=== PATIENT | female | born 1955 | race Caucasian/White ===

== ENCOUNTER 2017-08-26 06:08 | Day surgery (SDC) | payer SELFPAY ==
--- NOTE | 2017-08-22 16:28 | EKG12_ITS ---
Test Reason : PRE OP Blood Pressure : / mmHG Vent. Rate : 085 BPM Atrial Rate : 085 BPM P-R Int : 198 ms QRS Dur : 080 ms QT Int : 382 ms P-R-T Axes : 037 063 041 degrees QTc Int : 454 ms Normal sinus rhythm Low voltage QRS (limb leads) Nonspecific T wave abnormality Abnormal ECG Confirmed by BLU MCKAY, OBED ([id number]), design editor WIL RYDER ([id number]) on 08/26/2017 1:43:22 PM Referred By: Juanjo Santiago Confirmed By:OBED HURT MD
[2017-08-22 17:26] LABS: Hematocrit 38.1 % (37-47); Hemoglobin 12.6 g/dl (12.0-15.0); Mean Corp Hgb Conc 33.1 g/gl (32-36); Mean Corpuscular Hgb 30.5 pg (27.0-32.0); Mean Corpuscular Volume 92.3 fL (81-99); Mean Platelet Vol. 9.5 fl (6.2-12.0); Platelet Count 133 K/mm3 (150-450); RBC Distribution Width CV 13.7 % (11.6-14.6); RBC Distribution Width SD 45.6 fl (35.1-43.9); Red Blood Count 4.13 M/mm3 (4.2-5.4); White Blood Count 3.5 K/mm3 (4.4-11.0)
[2017-08-22 17:27] LABS: Scan Indicated on CBC? Y/N NO
[2017-08-22 17:31] LABS: Partial Thromboplast Time 34.5 Seconds (24.1-36.2)
[2017-08-22 17:45] LABS: Anion Gap 6 (5-15); BUN 16 mg/dL (7-18); BUN/Creat Ratio 16.4 RATIO (10-20); Calcium,Total 8.5 mg/dL (8.5-10.1); Chloride 108 mmol/L (98-107); Creatinine, Serum 0.98 mg/dL (0.55-1.02); EST Glomerular Filtration Rate 62 mL/min (>60); Est Glom Filt Rate - Afr Amer 75 mL/min (>60); Glucose 92 mg/dL (74-106); Potassium 3.8 mmol/L (3.5-5.1); Sodium Level 143 mmol/L (136-145)
[2017-08-26] VITALS (8 sets, daily range): BP systolic 127–138; BP diastolic 76–90; PULSE 90–113; RESP 16–18; TEMP 36.3–36.9; O2SAT 95–100; BMI 24.0
--- NOTE | 2017-08-26 07:28 | PCM.DC ---
You will use the following diet at home:: Regular Additional Activity Instructions:: Empty and record drain output every 12 hours. Keep incision dry until . Apply antibiotic ointment to the sutures 3x/day. Follow up on Saturday in [place] (call for appointment) for drain removal. Allergies/Adverse Reactions: Allergies No Known Allergies Allergy (Verified 08/19/17 10:23) Medications to take at Discharge Phenytoin Na [Dilantin] 100 mg PO BID 08/19/17 Primary Care Physician: Nicola Paiz DO [Primary Care Provider] -
--- NOTE | 2017-08-26 07:30 | PAR_PTH ---
PATIENT: PRABHJOT BHAKTA LOC: [facility] – [place] U#:[id number] AGE/SX: 62/F ROOM: RE08/26/[address]: Dr. Juanjo Santiago MD : [id number] BED: DIS: 08/26/2017 SPEC #: [id number] RECD: 08/26/17 11:49 STATUS: SHELLY RENEE #: [id number] [place]: 08/26/17 07:[address]: Juanjo Santiago DEPT: SURGICAL PATHOLOGY RECD BY: Morgan Grey ENTERED: 08/26/17 12:28 SP TYPE: PAROTID OTHR DR: Dr. Nicola Paiz, DO Tissues: Parotid gland, NOS Procedures: Surgery Specimen Level IV HEADER OPERATION: Left parotidectomy, preservation facial nerve dissection PRE-OP DIAGNOSIS: Benign neoplasm of parotid gland TISSUE SUBMITTED: Left superficial parotid gland MICROSCOPIC DIAGNOSIS Left superficial parotid gland, parotidectomy: Pleomorphic adenoma. Intraparotid and periparotid lymph node tissue with reactive changes. 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 MICROSCOPIC DESCRIPTION Slides are reviewed. GROSS DESCRIPTION Received in fixative is one container labeled with the patient's name and designated left superficial parotid gland. The specimen consists of a pink-red glandular tissue weighing 8.8 gm and measures 4 x 3 x 1.5 cm. The resection margin is inked black. Serial sections reveal a yeung solid mass with focal hemorrhagic area measuring 2 x 2 x 1.5 cm. The entire specimen is submitted in eight cassettes from one to another end. / MARC:alla 08/26/17 TC:1 CPT: 24641
[2017-08-26] MEDS: Bacitracin 500 UNITS/GM PACKET (09:47)
--- NOTE | 2017-08-26 10:37 | PCM.OPRPT ---
Report of Operation Date of Procedure: 08/26/17 Pre-Operative Diagnosis: left parotid mass Post-Operative Diagnosis: same Surgery/Procedure Performed:: Left superficial parotidectomy with facial nerve dissection and preservation Description of Surgical Findings:: intact facial nerve. Tail of parotid mass. oil lease operator: None oil lease operator: Ramon Curtis Type of Anesthesia:: General Anesthesiologist: Gary Dixon Specimen's removed: left parotid Drains: hemovac Estimated Blood Loss (mL): minimal Description of Procedure: The patient was taken to the OR on 08/26/17. She was placed in the supine position on the OR table. She was given sufficient general endotracheal anesthesia. The table was turned 90 degrees in a clockwise fashion. The NIM facial nerve monitor was used. The electrodes were placed in the orbicularis henna and oculi. The face and neck were prepped and draped steriley. 1% lidocaine with epinephrine ([id number]) was injected into the skin over the intended incision. A standard eloisa incision was made with a 15 blade. Hemostasis was achieved with bipolar cautery. A plane was established sharply on the parotid gland and the SMAS was kept with the skin flap. The ear lobe was reflected posteriorly and the anterior skin flap was reflected anteriorly. The posterior border of the parotid was delineated sharply. The SCM was identified. Next, the tragal pointer and the mastoid tip were dissected and a trough was formed between the two. Hemostasis was achieved with bipolar cautery. Next, I used blunt dissection to identify the nerve. This was verified with the NIM monitor. Next, the facial nerve was dissected. The pes was identified. Next, we dissected each inferior branch. While doing this we removed the parotid laterally from the nerve. We continued this with each successive superior branch until the tumor was removed with the lateral gland. Hemostasis was achieved with bipolar cautery. We then stimulated the main trunk, the superior division and inferior division and saw tracings for each stimulation on the monitor. The wound was irrigated with saline. A hemovac drain was place through a separate stab incision and sewn to the skin with 3-0 nylon. The incision was then closed with 4-0 vicryl for the deep sutures and 6-0 nylon for the skin. Bacitracin was applied to the incision. The patient was then awoken and brought to the recovery room in stable condition. Blood loss minimal, replacement none. Sponge, needle and instrument count were correct at the end of the procedure. Dr. Curtis was invaluable in assisting, identifying and dissecting the facial nerve.
--- NOTE | 2017-08-26 10:48 | OP.PCM_ITS ---
Report of Operation Date of Procedure: 08/26/17 Pre-Operative Diagnosis: left parotid mass Post-Operative Diagnosis: same Surgery/Procedure Performed:: Left superficial parotidectomy with facial nerve dissection and preservation Description of Surgical Findings:: intact facial nerve. Tail of parotid mass. lay ups assembler: None lay ups assembler: Ramon Curtis Type of Anesthesia:: General Anesthesiologist: Gary Dixon Specimen's removed: left parotid Drains: hemovac Estimated Blood Loss (mL): minimal Description of Procedure: The patient was taken to the OR on 08/26/17. She was placed in the supine position on the OR table. She was given sufficient general endotracheal anesthesia. The table was turned 90 degrees in a clockwise fashion. The NIM facial nerve monitor was used. The electrodes were placed in the orbicularis henna and oculi. The face and neck were prepped and draped steriley. 1% lidocaine with epinephrine ([id number]) was injected into the skin over the intended incision. A standard eloisa incision was made with a 15 blade. Hemostasis was achieved with bipolar cautery. A plane was established sharply on the parotid gland and the SMAS was kept with the skin flap. The ear lobe was reflected posteriorly and the anterior skin flap was reflected anteriorly. The posterior border of the parotid was delineated sharply. The SCM was identified. Next, the tragal pointer and the mastoid tip were dissected and a trough was formed between the two. Hemostasis was achieved with bipolar cautery. Next, I used blunt dissection to identify the nerve. This was verified with the NIM monitor. Next, the facial nerve was dissected. The pes was identified. Next, we dissected each inferior branch. While doing this we removed the parotid laterally from the nerve. We continued this with each successive superior branch until the tumor was removed with the lateral gland. Hemostasis was achieved with bipolar cautery. We then stimulated the main trunk , the superior division and inferior division and saw tracings for each stimulation on the monitor. The wound was irrigated with saline. A hemovac drain was place through a separate stab incision and sewn to the skin with 3-0 nylon. The incision was then closed with 4-0 vicryl for the deep sutures and 6- 0 nylon for the skin. Bacitracin was applied to the incision. The patient was then awoken and brought to the recovery room in stable condition. Blood loss minimal, replacement none. Sponge, needle and instrument count were correct at the end of the procedure. Dr. Curtis was invaluable in assisting, identifying and dissecting the facial nerve.
== END 2017-08-26 13:07 | disposition home or self-care (01) ==
LOC: SDC 06:09 → AC 06:09
PROVIDERS: Family Provider Family Medicine; PCP Family Medicine; Visit Provider Otolaryngology
PROC: (CPT 42410; principal; 2017-08-26 07:00)
DX: D11.0 Benign neoplasm of parotid gland (principal); Z79.899 Other long term (current) drug therapy; G40.909 Epilepsy, unspecified, not intractable, without status epilepticus; M79.89 Other specified soft tissue disorders; H53.8 Other visual disturbances
CPT/HCPCS: 42415; 36415; 80048; 85027; 85730; 88305; 93005; J7120; C1729; J2405